=== PATIENT | female | born 1930 | race Caucasian/White ===

== ENCOUNTER 2017-01-14 17:11 | Emergency (ER) | payer MEDICARE ==
[~2017-01-14] VITALS: Ht 162.6 cm; Wt 71.7 kg
[2017-01-14] MEDS ORDERED: ONDANSETRON HCL/PF 4 MG/2 ML VIAL IVP ONE (17:30)
[2017-01-14] MEDS ORDERED: FENTANYL PF 100MCG/2ML AMPUL ONE (17:30)
[2017-01-14] MEDS ORDERED: FENTANYL PF 100MCG/2ML AMPUL IV ONE (17:30)
[2017-01-14] MEDS ORDERED: ONDANSETRON HCL/PF 4 MG/2 ML VIAL ONE (17:30)
[2017-01-14 18:49] VITALS: BP 165/84
[2017-01-15] MEDS ORDERED: SIMV20TA6 PO (08:45)
[2017-01-15] MEDS ORDERED: ASPI81TA2 PO (08:45)
[2017-01-15] MEDS ORDERED: TIOT18CA3 IH (08:45)
[2017-01-15] MEDS ORDERED: OMEP20TA68 PO (08:45)
[2017-01-15] MEDS ORDERED: CITA20TA11 PO (08:45)
== END 2017-01-14 18:50 | disposition home or self-care (01) ==
LOC: ER 17:12
DX: S42.291A Other displaced fracture of upper end of right humerus, initial encounter for closed fracture (principal); R51 Headache; I10 Essential (primary) hypertension; M19.90 Unspecified osteoarthritis, unspecified site; M81.0 Age-related osteoporosis without current pathological fracture; W10.8XXA Fall (on) (from) other stairs and steps, initial encounter; Y93.89 Activity, other specified; Y92.89 Other specified places as the place of occurrence of the external cause; Y99.8 Other external cause status
CPT/HCPCS: 70450-TC; 71010-TC; 72125-TC; 72170-TC; 73030-TC; A4606; J2405; J3010; Z7610

== ENCOUNTER 2017-01-14 20:08 | Inpatient (IN) | payer MEDICARE ==
[~2017-01-14] VITALS: Ht 162.6 cm; Wt 69.9 kg
--- NOTE | 2017-01-14 20:20 | NUR ---
PT TO ER BED 7, PT BIB RA, WITNESSED SYNCOPAL EPISODE BY PARAMEDICS. PT D/C FROM ER A COUPLE HOURS AGO FOR R HUMERUS FX. PT PLACED IN GOWN AND ON TANK TRUCK OPERATOR. VSS/RESP EVEN UNLABORED/NAD NOTED/SKIN WARM AND DRY/DENIES N-V-D/AOX4. AWAITING MD SWAN.
--- NOTE | 2017-01-14 20:45 | NUR ---
AT BEDSIDE WITH ULTRASOUND MACHINE FOR IV PLACEMENT. 20G IV TO L AC USING ASEPTIC TECH, BLOOD HANDED OVER TO LAB AT BEDSIDE. IV FLUSHES EASILY WITH NS.
[2017-01-14 20:51] LABS: BASOPHILS # (AUTO) 0.1 /CMM (0.0-0.2); BASOPHILS % (AUTO) 0.6 % (0.0-2.0); EOSINOPHILS % (AUTO) 0.3 % (0.0-6.0); HEMATOCRIT 37 % (33-45); HEMOGLOBIN 12.1 g/dL (11.5-14.8); LYMPHOCYTES # (AUTO) 1.4 /CMM (0.8-4.8); LYMPHOCYTES % (AUTO) 9.9 % (20.0-44.0); MEAN CORPUSCULAR HEMOGLOBIN 28 PG (26.0-33.0); MEAN CORPUSCULAR HGB CONC 33 g/dl (31.0-36.0); MEAN CORPUSCULAR VOLUME 84 fL (82-100); MONOCYTES # (AUTO) 0.5 /CMM (0.1-1.30); MONOCYTES % (AUTO) 3.5 % (2.0-12.0); NEUTROPHILS # (AUTO) 11.9 /CMM (1.8-8.9); NEUTROPHILS % (AUTO) 85.7 % (43.0-81.0); PLATELET COUNT (AUTO) 236 /CMM (150-450); RED BLOOD CELL COUNT(AUTO) 4.36 MIL/uL (4.0-5.2); WHITE BLOOD COUNT (AUTO) 13.9 K/uL (4.3-11.0)
[2017-01-14 21:02] LABS: CALCIUM, SERUM 9.2 mg/dL (8.5-10.1); CARBON DIOXIDE 26 mmol/L (21-32); CHLORIDE 103 mmol/L (98-107); CREATININE 1.6 mg/dL (0.6-1.3); GLUCOSE 142 mg/dL (74-106); POTASSIUM 3.9 mmol/L (3.5-5.1); SODIUM SERUM 139 mmol/L (136-145); UREA NITROGEN, BLOOD 22 mg/dL (7-18)
[2017-01-14 21:10] LABS: TROPONIN I < 0.017 ng/mL (0.00-0.056)
--- NOTE | 2017-01-14 21:24 | NUR ---
PT ADMIT TO TELE [id number].
[2017-01-14] MEDS ORDERED: IV NS 0.9% 500 ML BAG IV ONE (21:30)
--- NOTE | 2017-01-14 21:30 | NUR ---
REPORT GIVEN TO VARINDER LEGER.
--- NOTE | 2017-01-14 21:35 | NUR ---
RECEIVED REPORT FROM ERIK IN THE ER.
[2017-01-14 21:50] VITALS: BP 184/64
--- NOTE | 2017-01-14 21:50 | NUR ---
DRILLING MANAGER NOTES PT ARRIVED ON TO THE UNIT AT 2150 VIA GURNEY. PT IS ALERT AND ORIENTED. PT HAS NO S/S OF PAIN OR DISTRESS AT THIS TIME. LUNGS ARE CLEAR AND NON LABORED RESPIRATIONS BILATERALLY. PT HAS LAC #20, INTACT AND PATENT. PT STATES THAT EARLIER TODAY SHE FELL DOWN STAIRS AT HER HOME. WHEN SHE WAS RELEASED FROM THE ER EARLIER TODAY SHE STATES THAT SHE HAD FAINTED BUT DID NOT FALL AGAIN. ORIENTED PATIENT TO THE CALL LIGHT AND HOW TO WATCH TV. WILL CONTINUE TO MONITOR PT.
--- NOTE | 2017-01-14 21:50 | NUR ---
PT TRANSPORTED TO [place] [id number] VIA STRETCHER WITH RN, ACLS PROTOCOL. VSS.
[2017-01-14] MEDS ORDERED: IV NS 0.9% 1,000 ML IV PRN (22:14)
[2017-01-14] MEDS ORDERED: ONDANSETRON HCL/PF 4 MG/2 ML VIAL IVP PRN (22:30)
[2017-01-14] MEDS ORDERED: ACETAMINOPHEN 325 MG TABLET PO PRN (22:30)
[2017-01-14] MEDS ORDERED: ZOLPIDEM TARTRATE 5 MG TABLET PO PRN (22:30)
[2017-01-14] MEDS ORDERED: MAGNESIUM HYDROXIDE 30 ML UDC PO PRN (22:30)
[2017-01-14] MEDS ORDERED: MAG HYDROX/AL HYDROX/SIMETH 30 ML UDC PO PRN (22:30)
[2017-01-14] MEDS ORDERED: Z GUARD REMEDY 2 OZ OINT TP PRN (22:30)
[2017-01-14 23:49] VITALS: BP 162/69
[2017-01-15] VITALS (7 sets, daily range): BP systolic 81–152; BP diastolic 41–80
[2017-01-15] MEDS ORDERED: HYDROCODONE/APAP 5/325MG 1 EACH TABLET ONE (00:06)
[2017-01-15] MEDS: HYDROCODONE/APAP 5/325MG 1 EACH TABLET PO PRN ×2 (00:11→17:10)
--- NOTE | 2017-01-15 00:11 | NUR ---
PT REQUESTED PAIN MEDICATION FOR RIGHT SHOULDER PAIN OF 8/. WILL ADMINISTER PRN NORCO [phone]. WILL CONTINUE TO MONITOR.
[2017-01-15 06:29] LABS: BASOPHILS % (AUTO) 0.2 % (0.0-2.0); EOSINOPHILS % (AUTO) 0.1 % (0.0-6.0); HEMATOCRIT 30 % (33-45); LYMPHOCYTES # (AUTO) 1.5 /CMM (0.8-4.8); LYMPHOCYTES % (AUTO) 17.4 % (20.0-44.0); MEAN CORPUSCULAR HEMOGLOBIN 28 PG (26.0-33.0); MEAN CORPUSCULAR HGB CONC 33 g/dl (31.0-36.0); MEAN CORPUSCULAR VOLUME 85 fL (82-100); MONOCYTES # (AUTO) 0.6 /CMM (0.1-1.30); MONOCYTES % (AUTO) 6.6 % (2.0-12.0); NEUTROPHILS # (AUTO) 6.7 /CMM (1.8-8.9); NEUTROPHILS % (AUTO) 75.7 % (43.0-81.0); PLATELET COUNT (AUTO) 183 /CMM (150-450); RDW COEFFICIENT OF VARIATION 14.8 (11.5-15.0); RED BLOOD CELL COUNT(AUTO) 3.59 MIL/uL (4.0-5.2); WHITE BLOOD COUNT (AUTO) 8.8 K/uL (4.3-11.0)
[2017-01-15 06:55] LABS: ALANINE AMINOTRANSFERASE 16 U/L (12-78); ALBUMIN 3.1 g/dL (3.4-5.0); ALKALINE PHOSPHATASE 61 U/L (46-116); ASPARTATE AMINOTRANSFERASE 22 U/L (15-37); BILIRUBIN,TOTAL 0.6 mg/dL (0.2-1.0); CALCIUM, SERUM 8.8 mg/dL (8.5-10.1); CARBON DIOXIDE 26 mmol/L (21-32); CHLORIDE 109 mmol/L (98-107); CREATININE 1.5 mg/dL (0.6-1.3); GLUCOSE 128 mg/dL (74-106); PHOSPHORUS 3.9 mg/dL (2.5-4.9); POTASSIUM 4.5 mmol/L (3.5-5.1); SODIUM SERUM 144 mmol/L (136-145); TOTAL PROTEIN, SERUM 6.5 g/dL (6.4-8.2); UREA NITROGEN, BLOOD 21 mg/dL (7-18)
[2017-01-15 06:58] LABS: CHOLESTEROL 150 mg/dL (<200); HDL CHOLESTEROL 50 mg/dL (40-60); LDL 80 mg/dL (0-99); THYROID STIMULATING HORMONE 2.898 uIU/mL (0.358-3.74); TRIGLYCERIDES 93 mg/dL (30-150)
--- NOTE | 2017-01-15 07:41 | NUR ---
RN CLOSING NOTES PT RESTING IN BED. PT IS ALERT AND ORIENTED. PT HAS NO S/S OF PAIN OR DISTRESS. LUNGS ARE CLEAR AND NON LABORED RESPIRATIONS BILATERALLY. PT HAS LAC #20, INTACT AND PATENT. SAFETY PRECAUTIONS IN PLACE, BED IN LOW LOCKED POSITION, CALL LIGHT WITHIN REACH. WILL ENDORSE TO DAY SHIFT NURSE.
--- NOTE | 2017-01-15 08:00 | NUR ---
MS RN AM NOTES PT RESTING IN BED. PT IS ALERT AND ORIENTED. PT HAS NO S/S OF PAIN OR DISTRESS. LUNGS ARE CLEAR AND NON LABORED RESPIRATIONS BILATERALLY. PT HAS LAC #20, INTACT AND PATENT. SAFETY PRECAUTIONS IN PLACE, BED IN LOW LOCKED POSITION, CALL LIGHT WITHIN REACH.
[2017-01-15] MEDS ORDERED: OMEP20TA68 PO (08:45)
[2017-01-15] MEDS ORDERED: ASPI81TA2 PO (08:45)
[2017-01-15] MEDS ORDERED: TIOT18CA3 IH (08:45)
[2017-01-15] MEDS ORDERED: SIMV20TA6 PO (08:45)
[2017-01-15] MEDS ORDERED: CITA20TA11 PO (08:45)
--- NOTE | 2017-01-15 10:30 | NUR ---
PT AMBULATED WITH P.T. WITH ORTHOSTATS DOCUMENTED.
[2017-01-15] MEDS: IV NS 0.9% 1,000 ML IV PRN (14:04)
--- NOTE | 2017-01-15 17:58 | NUR ---
PT EATING DINNER SITTING ON THE EDGE OF THE BED.DENYING ANY PAIN OR DISTRESS.WITH ONGOING IVF OF NS AT 125 ML/HR INFUSING WELL.CALL LIGHT PLACED WITHIN REACH.
--- NOTE | 2017-01-15 19:15 | NUR ---
TELE/RN OPENING NOTES PT RECEIVED RESTING COMFORTABLY IN BED. A/OX3. ON ROOM AIR, BREATHING EVEN AND UNLABORED. NO APPARENT DISTRESS NOTED. DENIES PAIN AT THIS TIME. SLING TO RIGHT ARM IN PLACE. IV TO LAC PATENT AND INTACT RUNNING IVF ORDERED. BED IN LOW/LOCKED POSITION WITH CALL LIGHT IN REACH AND SIDE RAILS UPX2. BED ALARM ON FOR SAFETY. ENCOURAGED PT TO REMAIN IN BED AND USE CALL LIGHT FOR ASSISTANCE. WILL CONTINUE TO MONITOR
--- NOTE | 2017-01-15 23:20 | NUR ---
TELE/RN NOTES ORTHOSTATIC BP AND DOCUMENTED ON VITAL SIGN SHORT FORM LAYING: TO=629/58, HR=69 SITTING: NU=801/54, HR=74 STANDING: GF=083/47, HR=83
[2017-01-16] VITALS: BP 108/63
[2017-01-16] MEDS: HYDROCODONE/APAP 5/325MG 1 EACH TABLET PO PRN (00:17)
[2017-01-16] MEDS: IV NS 0.9% 1,000 ML IV PRN ×2 (01:42→10:31)
[2017-01-16 04:00] VITALS: BP 110/68
[2017-01-16 06:38] LABS: BASOPHILS % (AUTO) 0.4 % (0.0-2.0); EOSINOPHILS # (AUTO) 0.1 /CMM (0.0-0.7); EOSINOPHILS % (AUTO) 1.7 % (0.0-6.0); HEMATOCRIT 28 % (33-45); HEMOGLOBIN 8.9 g/dL (11.5-14.8); LYMPHOCYTES # (AUTO) 1.8 /CMM (0.8-4.8); LYMPHOCYTES % (AUTO) 24.3 % (20.0-44.0); MEAN CORPUSCULAR HEMOGLOBIN 28 PG (26.0-33.0); MEAN CORPUSCULAR HGB CONC 32 g/dl (31.0-36.0); MEAN CORPUSCULAR VOLUME 86 fL (82-100); MONOCYTES # (AUTO) 0.6 /CMM (0.1-1.30); MONOCYTES % (AUTO) 8.3 % (2.0-12.0); NEUTROPHILS # (AUTO) 4.9 /CMM (1.8-8.9); NEUTROPHILS % (AUTO) 65.3 % (43.0-81.0); PLATELET COUNT (AUTO) 126 /CMM (150-450); RDW COEFFICIENT OF VARIATION 14.7 (11.5-15.0); RED BLOOD CELL COUNT(AUTO) 3.21 MIL/uL (4.0-5.2); WHITE BLOOD COUNT (AUTO) 7.5 K/uL (4.3-11.0)
[2017-01-16 06:51] LABS: IRON, SERUM 22 ug/dl (50-175); TOTAL IRON BINDING CAPACITY 242 ug/dl (250-450)
[2017-01-16 07:06] LABS: ALANINE AMINOTRANSFERASE 17 U/L (12-78); ALKALINE PHOSPHATASE 54 U/L (46-116); ASPARTATE AMINOTRANSFERASE 22 U/L (15-37); BILIRUBIN,TOTAL 0.6 mg/dL (0.2-1.0); CALCIUM, SERUM 8.3 mg/dL (8.5-10.1); CARBON DIOXIDE 24 mmol/L (21-32); CHLORIDE 112 mmol/L (98-107); CREATININE 1.4 mg/dL (0.6-1.3); GLUCOSE 110 mg/dL (74-106); MAGNESIUM 1.9 mg/dL (1.8-2.4); PHOSPHORUS 3.2 mg/dL (2.5-4.9); POTASSIUM 4.1 mmol/L (3.5-5.1); SODIUM SERUM 145 mmol/L (136-145); TOTAL PROTEIN, SERUM 6.3 g/dL (6.4-8.2); UREA NITROGEN, BLOOD 17 mg/dL (7-18)
--- NOTE | 2017-01-16 07:09 | NUR ---
TELE/RN CLOSING NOTES PT ASLEEP, EASILY AROUSABLE. A/OX2-3 WITH EPISODES OF CONFUSION. SLING TO RIGHT ARM IN PLACE. ON TELE MONITOR SR WITH PAC AND PVC, HR=76. IV TO LAC PATENT AND INTACT RUNNING IVF ORDERED. PAIN MANAGED PRN. NO SIGNIFICANT CHANGES OVERNIGHT. DAY SHIFT RN TO FOLLOW UP WITH MED RECON AND OB STOOL. ORTHOSTATICS COMPLETED. WILL ENDORSE TO DAY SHIFT RN FOR ARSEN.
[2017-01-16 07:12] LABS: FERRITIN 30 ng/mL (8-388); TROPONIN I 0.011 ng/mL (0.00-0.056)
--- NOTE | 2017-01-16 07:20 | NUR ---
CANINE ENFORCEMENT OFFICER/OPENING NOTES RECEIVED PT. IN BED ALERT AND ORIENTED X4. PT. IS ON TELE MONITOR READING SINUS RHYTHM WITH OCCASIONAL PAC AND PVC'S 84 BPM. BREATHING UNLABORED, AND EVENLY ON ROOM AIR. NO S/S OF ACUTE DISTRESS. IV FLUIDS RUNNING AT 125 ML/HR. PT. IS WEARING A SLING ON RIGHT ARM DUE TO RIGHT HUMERAL FRACTURE. BED SIDE COMMODE IS NEARBY. BED IS IN LOWEST AND LOCKED POSITION. 2 SIDE RAILS UP, AND INSTRUCTED PT. TO USE CALL LIGHT FOR ASSISTANCE. ALL NEEDS MET. WILL CONTINUE TO ASSESS AND MONITOR.
[2017-01-16 08:00] VITALS: BP 148/56
[2017-01-16] MEDS ORDERED: SOD FERRIC GLUC 125 MG in IV NS 0.9% 100 ML IV SCH (14:00)
[2017-01-16 16:00] VITALS: BP 148/68
--- NOTE | 2017-01-16 17:14 | NUR ---
RN NOTES PROVIDED REPORT TO LIBORIO MONTERROSO FROM [facility].
--- NOTE | 2017-01-16 19:30 | NUR ---
RN NOTES DISCHARGE PT. WAS DISCHARGED IN MEDICALLY STABLE CONDITION. PT. WAS TAKEN BY AMBULANCE TO [facility]. DISCHARGE INSTRUCTIONS AND EDUCATIONS PROVIDED, PT. VERBALIZED UNDERSTANDING. BELONGINGS LIST CHECKED AND SIGNED. PICTURES TAKEN AND PLACED IN CHART. ID BAND AND IV WAS REMOVED WITHOUT COMPLICATIONS. ALL QUESTIONS ANSWERED.
== END 2017-01-16 19:40 | DRG 73 ==
LOC: ER 20:09 → TELE 21:27 → MED 01-16 09:22
PROVIDERS: ADMIT Internal Medicine; ATTEND Internal Medicine
DX: G90.8 Other disorders of autonomic nervous system (principal); N17.0 Acute kidney failure with tubular necrosis; R13.10 Dysphagia, unspecified; D64.9 Anemia, unspecified; S42.211A Unspecified displaced fracture of surgical neck of right humerus, initial encounter for closed fracture; F32.9 Major depressive disorder, single episode, unspecified; J44.9 Chronic obstructive pulmonary disease, unspecified; F41.9 Anxiety disorder, unspecified; W18.30XA Fall on same level, unspecified, initial encounter; I70.0 Atherosclerosis of aorta; J32.9 Chronic sinusitis, unspecified; K21.9 Gastro-esophageal reflux disease without esophagitis; K44.9 Diaphragmatic hernia without obstruction or gangrene; M19.90 Unspecified osteoarthritis, unspecified site; M79.7 Fibromyalgia; Z87.891 Personal history of nicotine dependence; M81.0 Age-related osteoporosis without current pathological fracture; Y92.009 Unspecified place in unspecified non-institutional (private) residence as the place of occurrence of the external cause; Z79.899 Other long term (current) drug therapy; N18.9 Chronic kidney disease, unspecified; Z79.82 Long term (current) use of aspirin
CPT/HCPCS: 36415; 80048-TC; 80053-TC; 80061-TC; 82272-TC; 82728-TC; 83540-TC; 83735-TC; 84100-TC; 84443-TC; 84484-TC; 85025-TC; 87081-TC; 92611-TC; 93307-TC; 97116-TC; 97530-TC; A4606; J2916; J7030; J7040; Z7610